=== PATIENT | female | born 2005 | race Asian ===

== ENCOUNTER 2024-04-12 01:49 | Emergency (ER) | payer OTHER, SELFPAY ==
[2024-04-12 01:52] VITALS: BP 136/90
--- NOTE | 2024-04-12 02:56 | ED.GENMED ---
History of Present Illness
General
Chief Complaint: Ear Problem
Source: patient and family (Father)
Exam Limitations: none
Time Seen by Provider: 04/12/24 02:48
Nursing documentation reviewed up to this point in time: agreed with
History of Present Illness
History of Present Illness:
This is a 18-year-old female has no significant past medical history complains of 1 day history of left ear pain, moderate to severe with mildly decreased hearing. No drainage. She does admit to mild nasal congestion over the past several days and
low-grade fever yesterday.
Recently returned from a family vacation from [facility] earlier in the week.
Her uncle is a physician and after discussing symptoms with the patient's father recommended she start Augmentin which she has a 5-day course of at home, she was given 1 tablet tonight. He also gave her ibuprofen 400 mg this evening and currently
pain is markedly improved.
She denies sore throat. No nausea nor vomiting. No headache nor neck pain.
No history of frequent ear infections.
She denies risk of .
Past History
Past History
ED Past Medical History: None
ED Past Surgical History: None
Social History
Tobacco: Non-smoker
Alcohol: None
Personal: Single
Living: with family
Employment: Student
Family History
Family History: Other (Noncontributory)
Phy Exam
Physical Exam
Physical Exam:
GENERAL: 18-year-old female appears her stated age, awake and alert, pleasant, appears in no acute distress. Accompanied by her father.
EYE: anicteric
NECK: Supple, nontender, no meningismus, no significant adenopathy.
ENT: posterior pharynx is clear, oral mucosa is moist. Left TM is red, mildly bulging. No perforation. Canal is clear. Right TM and canal are clear. Nares have minimally boggy turbinates without rhinorrhea.
CARDIAC: Regular rate and rhythm. no murmur.
LUNGS: Clear breath sounds bilaterally, no acute respiratory distress, no wheezes/rales/rhonchi
ABDOMEN: Soft, nondistended, without focal tenderness
NEUROLOGICAL: Alert and oriented x3, no focal neuro deficits. Gait is stanley and steady.
SKIN: Warm and dry, normal color, skin intact. No rash.
MUSCULOSKELETAL: No C/C/E. peripheral pulses are full and equal b/l. No palpable tenderness.
PSYCH: Normal and appropriate interaction.
Course
Orders/Labs/Results
Orders:
Orders
04/12/24 02:56
Ketorolac [Toradol] 30 mg IM NOW STA
Vital Signs
Initial and Last Documented VS:
Initial Vital Signs
Temp Pulse Resp BP Pulse Ox
98.4 F 85 18 136/90 100
04/12/24 01:52 04/12/24 01:52 04/12/24 01:52 04/12/24 01:52 04/12/24 01:52
Last Documented Vital Signs
Temp Pulse Resp BP Pulse Ox
98.4 F 85 18 136/90 100
04/12/24 01:52 04/12/24 01:52 04/12/24 01:52 04/12/24 01:52 04/12/24 01:52
MDM/Problems Addressed
Differential Diagnosis Includes:
Patient presents with acute left ear pain.
Exam remarkable for acute otitis media.
No history of frequent ear infections, no history of immunocompromise.
Has been started on Augmentin which we recommend she continue for at least 7 days.
Recommend continuing ibuprofen as needed for pain, fever. Prescription provided.
Other supportive measures, elevating head of bed, heating pad to her ear for comfort.
Follow-up with PCP for recheck.
*Pulse Oximetry
Patient hypoxic: no
*Critical Care Note
Total Time (30-74mins, 75-104mins- exclusive of procedures): Not Applicable
ED Attending Note
-
Portions of this chart may have been created with voice recognition software.� Occasional wrong word or��sound alike� substitutions may have occurred due to the inherent limitations of voice recognition software.
Discharge Plan
Departure
Patient Disposition: Home (Routine Discharge)
Date of Disposition: 04/12/24
Time of Disposition: 02:57
Patient with high blood pressure during this ER visit?: No
Condition: Good
Discharge Problem:
Acute otitis media
Instructions: Ear Infections in Adults (DC)
Prescriptions:
New
amoxicillin-pot clavulanate 875-125 mg tablet
1 tab PO BID Qty: 10 0RF
ibuprofen 600 mg tablet
600 mg PO QID PRN (Reason: fever or pain) Qty: 30 0RF
No Action
montelukast [Singulair] 5 MG tablet,chewable
5 mg PO DAILY
cetirizine [Zyrtec] 10 MG tablet
10 mg PO DAILY
Referrals:
Mike Quinones MD [Family Provider] - Call in 1-3 days for appt
Interventions
Interventions:
*Risk Screen - Suicide Last Done: 04/12/24 01:52
*General Assessment Last Done: 04/12/24 01:52
*Neglect/Abuse Screening Last Done: 04/12/24 01:52
*ED COVID-19 Vaccine History Last Done: 04/12/24 02:19
Discharge Date and Time
Print Language: OCCITAN
[2024-04-12 03:12] VITALS: BP 100/74
[2024-04-12] MEDS: TORADOL 30 MG IM (03:13)
== END 2024-04-12 03:19 | disposition home or self-care (01) ==
LOC: EMR 01:49
PROVIDERS: EMERGENCY PHYSICIAN Emergency Medicine; FAMILY PHYSICIAN Pediatrics
DX: H66.92 Otitis media, unspecified, left ear (principal)
CPT/HCPCS: 99282; 96372